=== PATIENT | male | born 1995 | race Caucasian/White ===

== ENCOUNTER 2016-07-14 20:44 | Emergency (ER) | payer OTHER ==
[~2016-07-14] VITALS: Ht 188 cm; Wt 77.3 kg
[2016-07-14 21:12] VITALS: BP 152/92; PULSE 64; TEMP 98.2
[2016-07-14] MEDS ORDERED: DOXYCYCLINE HY100 MG PO (21:49)
[2016-07-14] MEDS ORDERED: AMOXICILLIN 8751 TAB PO (22:27)
== END 2016-07-14 22:48 | disposition home or self-care (01) ==
LOC: COL.ER 20:44
DX: S01.551A Open bite of lip, initial encounter (principal); W54.0XXA Bitten by dog, initial encounter; Z23 Encounter for immunization

== ENCOUNTER 2023-11-14 13:01 | Emergency (ER) | payer BC ==
[~2023-11-14] VITALS: Ht 188 cm; Wt 84.1 kg
[~2023-11-14 13:01] MED LIST: AMOXICILLIN 8751 TAB PO; DOXYCYCLINE HY100 MG PO
[2023-11-14] MEDS ORDERED: Morphine 4 MG/ML VIAL IV ONE (13:30)
[2023-11-14] MEDS ORDERED: LR 1,000 ML IV ONE (13:30)
[2023-11-14] MEDS ORDERED: Ondansetron 4 MG/2 ML VIAL IV ONE (13:30)
[2023-11-14 13:52] LABS: BASO # 0.1 K/mm3 (0.0-0.2); EOS # 0.1 K/mm3 (0.0-0.7); EOS % 1.1 % (0.0-4.0); GRAN # 7.8 K/mm3 (1.4-6.5); GRAN % 74.1 % (42.2-75.2); HEMATOCRIT 47.9 % (42.0-52.0); HEMOGLOBIN 16.5 g/dl (13.5-18.0); LYMPH % 18.9 % (20.0-51.0); MEAN CELL VOLUME 91 fl (80.0-100.0); MEAN CORPUSCULAR HEMOGLOBIN 31 pg (27-31); MEAN CORPUSCULAR HGB CONC 34 g/dl (33.0-37.0); MEAN PLATELET VOLUME 8.8 fl (7.4-10.4); MONO # 0.5 K/mm3 (0.1-0.6); MONO % 4.6 % (1.7-9.3); PLATELET COUNT 172 K/mm3 (130-400); RED BLOOD COUNT 5.25 M/mm3 (4.20-5.60); REDCELL DISTRIBUTION WIDTH-CV 11.9 % (11.5-14.5)
[2023-11-14 14:11] LABS: ALBUMIN 4.3 g/dL (3.5-5.0); CALCIUM 10.2 mg/dL (8.4-10.2); CREATININE, serum 0.89 mg/dL (0.72-1.25); MAGNESIUM 1.8 mg/dL (1.6-2.6); POTASSIUM 3.4 mEq/L (3.5-4.5); TOTAL PROTEIN 7.3 g/dl (6.2-8.1)
[2023-11-14 14:33] LABS: BILIRUBIN,TOTAL 0.7 mg/dL (0.2-1.2)
[2023-11-14 14:41] LABS: COLLECTION METHOD CLEAN CATCH
[2023-11-14 15:02] LABS: PH 7.5 (5.0-8.5); URINE APPEARANCE CLEAR (CLEAR/HAZY); URINE BLOOD NEGATIVE (NEGATIVE); URINE COLOR YELLOW (YELLOW); URINE GLUCOSE NEGATIVE (NEGATIVE); URINE KETONE NEGATIVE (NEGATIVE); URINE NITRATE NEGATIVE (NEGATIVE); URINE PROTEIN(semi-quant) NEGATIVE (NEGATIVE); URINE UROBILINOGEN 0.2 E.U/dL (0.2-1.0)
[2023-11-14 15:47] LABS: SQUAMOUS EPITHELIAL 0-2 /hpf (0-10); URINE BACTERIA NONE SEEN /hpf (NONE SEEN); URINE RBC 0-2 /hpf (0-2); URINE WBC 0-2 /hpf (0-2)
[2023-11-14] MEDS ORDERED: ZOFRAN ODT4 MG PO (15:48)
[2023-11-14] MEDS ORDERED: NORCO 325 MG-51 TAB PO (15:48)
[2023-11-14 16:00] VITALS: BP 133/83; PULSE 77
[2023-11-14] MEDS ORDERED: ZOLOFT 50MG50 MG PO (16:46)
[2023-11-14] MEDS ORDERED: XANAX 0.5MG0.5 MG PO (16:48)
== END 2023-11-14 16:05 | disposition home or self-care (01) ==
LOC: COL.ER 13:01
PROVIDERS: Emergency Medicine
DX: K85.90 Acute pancreatitis without necrosis or infection, unspecified (principal)
CPT/HCPCS: J2270; J2405; J7120

== ENCOUNTER 2023-11-14 16:24 | Inpatient (IN) | payer BC ==
[~2023-11-14] VITALS: Ht 188 cm; Wt 83.0 kg
[~2023-11-14 16:24] MED LIST changes: +NORCO 325 MG-51 TAB PO; +ZOFRAN ODT4 MG PO
[2023-11-14] MEDS ORDERED: ZOLOFT 50MG50 MG PO (16:46)
[2023-11-14] MEDS ORDERED: XANAX 0.5MG0.5 MG PO (16:48)
[2023-11-14] MEDS ORDERED: LORazepam 2 MG/ML 1 ML VIAL IV ONE (17:00)
[2023-11-14] MEDS ORDERED: Morphine 4 MG/ML VIAL IV ONE (17:00)
[2023-11-14] MEDS ORDERED: Ondansetron 4 MG/2 ML VIAL IV ONE (17:00)
[2023-11-14] MEDS ORDERED: LR 1,000 ML IV ONE (17:00)
[2023-11-14] MEDS ORDERED: ALPRAZolam 0.5 MG TAB PO PRN (17:45)
[2023-11-14] MEDS ORDERED: Morphine 4 MG/ML VIAL IV PRN (18:00)
[2023-11-14] MEDS ORDERED: oxyCODONE 5 MG TAB PO PRN (18:00)
[2023-11-14] MEDS ORDERED: 1/2 NS & 20 mEq KCl 1,000 ML IV SCH (18:00)
[2023-11-14] MEDS ORDERED: Acetaminophen 500 MG TAB PO PRN (18:00)
[2023-11-14] MEDS ORDERED: Ondansetron 4 MG/2 ML VIAL IV PRN (18:00)
[2023-11-14] MEDS ORDERED: Iohexol 300 - 100 ML VIAL IV ONE (18:10)
[2023-11-14] MEDS ORDERED: NS 100 ML IV.SOLN. IY SCH (18:11)
[2023-11-14] MEDS ORDERED: Nicotine 21 MG DAILY PATCH TD SCH (18:45)
[2023-11-14 18:49] VITALS: BP_SYST 140
--- NOTE | 2023-11-14 19:05 | NUR ---
Patient admitted to room 329. Amalia at bedside. Patient reports pain 8/10, Oxicodone for pain as ordered. He reports hunger and ready for clear liquids. Requesting Nicoderm patch. Call to JERAD Ferguson orders obtained. IVf as ordered. Bedside report to Sherrie to resume cares
[2023-11-14 19:39] VITALS: BP 146/93; PULSE 71; TEMP 98.4
--- NOTE | 2023-11-14 20:50 | NUR ---
Patient assessed at this time, see shift assessment, reports abdominal pain, PS of 9/10, medicated with morphine, fiancee at bedside, with IV infusing well om right forearm, denies nausea or vomiting, denies further needs, call light and personal items within reach, will continue to monitor.
[2023-11-14 21:00] VITALS: BP_SYST 146
--- NOTE | 2023-11-14 22:19 | NUR ---
Patient called and stated that morphine didn't really help much, oxycodone given at this time, will continue to monitor.
[2023-11-15] VITALS (13 sets, daily range): BP systolic 145–159; BP diastolic 86–105; PULSE 70–93; TEMP 97.8–99
--- NOTE | 2023-11-15 00:05 | NUR ---
Patient still rate his pain at 9/10, called Phyllis ,the [employer] and received an order for dilaudid, will monitor.
[2023-11-15] MEDS ORDERED: HYDROmorphone 0.5 MG/0.5 ML SYRINGE IV PRN (00:15)
--- NOTE | 2023-11-15 02:13 | NUR ---
Patient reports relief from pain, didn't rate the pain at this time.
[2023-11-15 07:05] LABS: BASO % 0.5 % (0.0-2.0); EOS % 0.4 % (0.0-4.0); GRAN # 5.9 K/mm3 (1.4-6.5); GRAN % 80.9 % (42.2-75.2); HEMOGLOBIN 15.2 g/dl (13.5-18.0); LYMPH # 0.8 K/mm3 (1.2-3.4); LYMPH % 11.5 % (20.0-51.0); MEAN CELL VOLUME 92 fl (80.0-100.0); MEAN CORPUSCULAR HEMOGLOBIN 33 pg (27-31); MEAN CORPUSCULAR HGB CONC 35 g/dl (33.0-37.0); MEAN PLATELET VOLUME 9.3 fl (7.4-10.4); MONO # 0.5 K/mm3 (0.1-0.6); MONO % 6.6 % (1.7-9.3); PLATELET COUNT 130 K/mm3 (130-400); RED BLOOD COUNT 4.68 M/mm3 (4.20-5.60); REDCELL DISTRIBUTION WIDTH-CV 11.7 % (11.5-14.5)
--- NOTE | 2023-11-15 07:26 | NUR ---
Patient resting in bed. Significant other at bedside. Reports pain slightly improved with medication, but still present 11/01. He denies nausea. Patient provided with fresh ice water and gatorade, tolerating clears. IVF as ordered to IV in RFA. Will let him rest & continue to monitor
[2023-11-15 07:29] LABS: BILIRUBIN,TOTAL 1.4 mg/dL (0.2-1.2); CALCIUM 10.2 mg/dL (8.4-10.2); CREATININE, serum 0.85 mg/dL (0.72-1.25); MAGNESIUM 1.3 mg/dL (1.6-2.6); POTASSIUM 3.8 mEq/L (3.5-4.5); TOTAL PROTEIN 6.7 g/dl (6.2-8.1)
[2023-11-15] MEDS ORDERED: Sertraline 50 MG TAB PO SCH (09:00)
--- NOTE | 2023-11-15 09:54 | NUR ---
NARESH met with patient and significant other Sara ([phone]) to complete initial assessment for discharge planning. 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 Patient sees Dr. Somers as his PCP and uses [facility] pharmacy. Patient denies having a DPOA and declines to complete one at this time. He states his father Bigg ([phone]) would make decisions if needed. Patient plans to return home at discharge. Discharge plan: Home
[2023-11-15] MEDS ORDERED: Magnesium Sulfate 8% 50 ML IV ONE (11:15)
--- NOTE | 2023-11-15 11:16 | NUR ---
Patient resting in bed. Reports pain elevated with PO intake, encouraged him not to push it. Reminded him IVF will help keep him hydrated. Patient requesting Roxicodone for pain rating 6/10. Medication as ordered. Donte rivera
--- NOTE | 2023-11-15 13:25 | NUR ---
Patient urgently rushed into the bathroom and had episode of forceful emesis. Reports intense pain after coughing triggered the vomiting. Patient reports pain 9/10. I did discuss with patient signs and symptoms of alcohol withdrawal and if he starts feeling any new syptoms to report right away, stressed with his history of drinking we will be watching symptoms.
--- NOTE | 2023-11-15 14:16 | NUR ---
Patient feeling slightly better after zofran and dilaudid. Resting in bed with significant other at bedside watching show. Will continue to closely monitor
--- NOTE | 2023-11-15 17:29 | NUR ---
Patient had another episode of emesis this afternoon after Roxicodone, rport feeling much better after. Sitting up in bed watching TV. Significant other at bedside. He report continued nausea. Suggested he stop with clear liquids until nausea subsided. He is agreeable. Will Monitor.
--- NOTE | 2023-11-15 18:28 | NUR ---
Resting in bed without needs. Will report off to nightnurse
[2023-11-16] VITALS (7 sets, daily range): BP systolic 143–151; BP diastolic 84–97; PULSE 67–93; TEMP 97.9–99.8
[2023-11-16 07:20] LABS: BASO # 0.1 K/mm3 (0.0-0.2); BASO % 0.5 % (0.0-2.0); EOS # 0.3 K/mm3 (0.0-0.7); EOS % 2.4 % (0.0-4.0); GRAN # 8.6 K/mm3 (1.4-6.5); GRAN % 83.6 % (42.2-75.2); HEMATOCRIT 45.1 % (42.0-52.0); HEMOGLOBIN 15.7 g/dl (13.5-18.0); LYMPH # 0.7 K/mm3 (1.2-3.4); LYMPH % 6.6 % (20.0-51.0); MEAN CELL VOLUME 92 fl (80.0-100.0); MEAN CORPUSCULAR HEMOGLOBIN 32 pg (27-31); MEAN CORPUSCULAR HGB CONC 35 g/dl (33.0-37.0); MONO # 0.7 K/mm3 (0.1-0.6); MONO % 6.5 % (1.7-9.3); PLATELET COUNT 111 K/mm3 (130-400); RED BLOOD COUNT 4.91 M/mm3 (4.20-5.60); REDCELL DISTRIBUTION WIDTH-CV 11.6 % (11.5-14.5)
[2023-11-16 07:50] LABS: ALBUMIN 3.9 g/dL (3.5-5.0); BILIRUBIN,TOTAL 1.5 mg/dL (0.2-1.2); CALCIUM 10.4 mg/dL (8.4-10.2); CREATININE, serum 0.85 mg/dL (0.72-1.25); MAGNESIUM 2.1 mg/dL (1.6-2.6); POTASSIUM 4.6 mEq/L (3.5-4.5); TOTAL PROTEIN 7.1 g/dl (6.2-8.1)
--- NOTE | 2023-11-16 10:15 | NUR ---
SHIFT ASSESSMENT COMPLETE. VSS. PATIENT UP WALKING AROUND ROOM REQUESTING TO SHOWER. IV WRAPPED AND SUPPLIES GIVEN FOR SHOWER. PATIENT REPORTS PAIN MIN. NO PAIN MEDS REQUESTED AT THSI TIME. PATIENT STATES NO N/V AT THIS TIME. NO REQUEST OR CONCERNS EXPRESSED. CALL LIGHT IN REACH.
--- NOTE | 2023-11-16 11:06 | NUR ---
D: Upstairs Maid stopped by room on rounds. A: Pt was in the shower. Upstairs Maid spoke with mom who was in the room. Pt has no needs right now. P: Upstairs Maid informed mom that if they needed anything from the transportation logistics internship area to let their nurse know. Upstairs Maid will follow up as needed.
--- NOTE | 2023-11-16 16:55 | NUR ---
Spoke with hospitalist, No concerns over gallbladder ultrasound. Tolerated full liquid diet and progressed to regular diet and did well. Denies pain and nausea and ready to get home. Discharge instructions given to patient and significant other. We reviewed follow up appt. that is scheduled. Int DC. Patient ambulated out with all belongigns. Denies questions or concerns.
== END 2023-11-16 16:57 | disposition home or self-care (01) | DRG 439 ==
LOC: COL.ER 16:24 → SURG 17:32
PROVIDERS: Internal Medicine; ADMIT Internal Medicine
DX: K85.20 Alcohol induced acute pancreatitis without necrosis or infection (principal); E87.20 Acidosis, unspecified; F41.9 Anxiety disorder, unspecified; E87.6 Hypokalemia; E83.42 Hypomagnesemia; E86.0 Dehydration; R16.0 Hepatomegaly, not elsewhere classified; F10.90 Alcohol use, unspecified, uncomplicated; K76.0 Fatty (change of) liver, not elsewhere classified; Z88.2 Allergy status to sulfonamides; Z79.899 Other long term (current) drug therapy
CPT/HCPCS: J1170; J2060; J2270; J2405; J3475; J3480; J7120; Q9967